=== PATIENT | male | born 1990 | race Caucasian/White ===

== ENCOUNTER 2023-04-07 00:45 | Emergency (ER) | payer OTHER ==
[~2023-04-07] VITALS: Ht 185.4 cm; Wt 97.4 kg
[~2023-04-07 00:45] MED LIST: IBUP800 PO
[2023-04-07 01:02] VITALS: BP 107/88
[2023-04-07] MEDS ORDERED: CEPH250A PO (02:40)
[2023-04-07] MEDS ORDERED: NAPR500 PO (02:40)
[2023-04-07] MEDS ORDERED: BENADRYL25 M1 PO (02:40)
== END 2023-04-07 03:12 | disposition home or self-care (01) ==
LOC: ER 00:45
DX: M54.31 Sciatica, right side (principal); L74.3 Miliaria, unspecified; Z88.0 Allergy status to penicillin
CPT/HCPCS: 96372; 99282-25; J1100; J1885